=== PATIENT | male | born 1950 | race Caucasian/White ===

== ENCOUNTER → 2025-01-23 | Outpatient (CLI) | payer MEDICARE, SELFPAY ==
--- NOTE | 2025-01-23 11:11 | MRI_ITS ---
PROCEDURE: BRAIN W/WO CONTRAST 01/23/2025 REASON FOR EXAM: SUDDEN LEFT SENSORINEURAL HEARING LOSS TECHNIQUE: Brain MRI without and with intravenous contrast with additional dedicated imaging of the IACs. Multiplanar and multisequence images were obtained. CONTRAST: Clar[place] VOLUME: 17 mL Gauge IV COMPARISON: None FINDINGS: Brain: Normal signal intensities. Midline structures within normal limits. Diffusion weighted images: No restricted diffusion to suggest acute infarct. Ventricles: Consistent with the overall degree of cerebral volume loss. Major Intracranial Vessels: Major flow voids are maintained. Sinuses: Clear. Mastoids: Clear. IACs: Patent Cranial Nerves VII and VIII: Normal. No evidence of mass. No abnormal contrast enhancement. Cochlea, Vestibule and Semicircular Canals: Symmetrically patent. Middle Ear Cavities: Unremarkable MRI/Brain W/WO Contrast IMPRESSION: Normal appearance of the IAC's. No finding to explain left sensorineural heari ng loss. No acute abnormal intracranial finding. Reading Location: [facility]
== END | disposition home or self-care (01) ==
PROVIDERS: PCP Family Medicine; Referring Provider Otolaryngology; Visit Provider Otolaryngology
DX: H90.3 Sensorineural hearing loss, bilateral (principal)
CPT/HCPCS: 70553; A9581